=== PATIENT | male | born 1975 | race Caucasian/White ===

== ENCOUNTER 2024-01-19 22:38 | Emergency (ER) | payer MEDICAID, MEDICARE, OTHER ==
[~2024-01-19] VITALS: Ht 167.6 cm; Wt 77.0 kg
[2024-01-19 22:40] VITALS: O2SAT 97
[2024-01-19] MEDS: LIDOCAINE 5% PATCH TOP SCH (22:45)
[2024-01-20 00:19] VITALS: BP 140/98; PULSE 85; TEMP 98.5
[2024-01-20] MEDS: KETOROLAC 30MG/ML VIAL IM ONE (00:19)
[2024-01-20] MEDS: ACETAMINOPHEN 325MG TABLET PO ONE (00:19)
[2024-01-20] MEDS ORDERED: BACL-141 MT (00:31)
[2024-01-20] MEDS ORDERED: ACET-2708 MT (00:31)
[2024-01-20] MEDS ORDERED: LIDO700A15 TP (00:31)
[2024-01-20] MEDS ORDERED: NAPR-420 MT (00:31)
[2024-01-20 00:35] VITALS: RESP 16
== END 2024-01-20 00:35 | disposition home or self-care (01) ==
LOC: ER 22:38
DX: M54.41 Lumbago with sciatica, right side (principal); E11.9 Type 2 diabetes mellitus without complications; I10 Essential (primary) hypertension; Z86.73 Personal history of transient ischemic attack (TIA), and cerebral infarction without residual deficits; Z79.899 Other long term (current) drug therapy
CPT/HCPCS: 99285; 72131; 96372; J1885